=== PATIENT | female | born 1980 | race Caucasian/White ===

== ENCOUNTER → 2019-03-07 | Outpatient (CLI) | payer OTHER ==
--- NOTE | 2019-03-18 10:49 | P.CEMON ---
70 went monitor shows sinus rhythm, sinus tachycardia, PVCs occasionally in a bigeminal pattern no nonsustained ventricular tachycardia No atrial fibrillation
--- NOTE | 2019-03-18 15:02 | EM ---
Patient Name: Johana Ramirez Date of : 80 Patient Status: Clinical Attending Provider: Jeremias Santiago Date: 03/18/19 10:46 Initialization Date: 03/18/19 10:46 70 went monitor shows sinus rhythm, sinus tachycardia, PVCs occasionally in a bigeminal pattern no nonsustained ventricular tachycardia No atrial fibrillation MTDD
== END | disposition home or self-care (01) ==
LOC: RADECHMAIN 12:27
PROVIDERS: ATTEND Internal Medicine Cardiovascular Disease
DX: I48.91 Unspecified atrial fibrillation (principal); R00.0 Tachycardia, unspecified
CPT/HCPCS: 93270

== ENCOUNTER → 2019-05-13 | Outpatient (CLI) | payer OTHER ==
--- NOTE | 2019-05-13 09:22 | US ---
LOWER EXTREMITY VENOUS INSUFFICIENCY CLINICAL HISTORY: R60.0 Edema. Left leg swelling, patient on blood thinners SIDE PERFORMED: Bilateral 1) Color flow is present and patency is documented in the following vessels. No DVT or SVT is noted . EIV Common Femoral Vein Deep Femoral Vein Femoral Vein Popliteal Vein Proximal Calf Veins Greater Saph Vein Upper Small Saph Vein 2) There is venous reflux noted at the following venous levels: Bilateral EIV IMPRESSION: Venous reflux bilateral external iliac veins
== END | disposition home or self-care (01) ==
LOC: RADUSMAIN 08:29
PROVIDERS: ATTEND Internal Medicine Cardiovascular Disease
DX: I87.2 Venous insufficiency (chronic) (peripheral) (principal)
CPT/HCPCS: 93970

== ENCOUNTER 2020-02-06 22:22 | Emergency (ER) | payer OTHER ==
[2020-02-06 22:39] VITALS: RESP 18
--- NOTE | 2020-02-06 23:50 | XR ---
EXAMINATION TYPE: XR Hip LT and AP Pelvis DATE OF EXAM: 02/06/2020 COMPARISON: NONE HISTORY: Fall. Left hip pain TECHNIQUE: 3 views FINDINGS: The pelvic ring is intact. Proximal left femur and hip joint appear normal. There are clips from tubal ligation. Sacroiliac joints appear normal. IMPRESSION: Normal pelvis and left hip exam. No fracture.
[2020-02-07] MEDS ORDERED: HYDROmorphone 1 MG/ML 1 ML SYRINGE IM STA (00:06)
[2020-02-07] MEDS ORDERED: ACET/COD 300 MG/30 MG STARTER PACK 6 TAB BTL PO STA (00:07)
--- NOTE | 2020-02-07 00:08 | ED ---
Fall HPI - General Chief Complaint: Fall Stated Complaint: Fall, L Leg Pain Time Seen by Provider: 02/06/20 23:10 Source: patient, RN notes reviewed, old records reviewed Mode of arrival: wheelchair Limitations: no limitations - History of Present Illness Initial Comments: This is a 39-year-old female DF for mechanical fall fall on the left hip. Patient states she just lost balance pain is persistent, no other injuries noted patient does take blood thinners but did not hit her head, urinated with no blood. 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 Place Fall Occurred: home Loss of Consciousness: none Prolonged Down Time?: no Symptoms Prior to Fall: none Location: back, pelvis Severity: mild Severity scale (1-10): 3 Quality: dull Context: tripped/slipped Associated Symptoms: denies - Related Data Home Medications Medication Instructions Recorded Confirmed Atorvastatin [Lipitor] 10 mg PO DAILY 02/07/20 02/07/20 Baclofen [Lioresal] 10 mg PO QID PRN 02/07/20 02/07/20 Butalb/APAP/Caff 50-325-40Mg 1 tab PO DAILY PRN 02/07/20 02/07/20 [Fioricet 50-325-40] Cholecalciferol (Vitamin D3) 125 mcg PO DAILY 02/07/20 02/07/20 [Vitamin D3] Loratadine [Claritin] 10 mg PO HS 02/07/20 02/07/20 Metoprolol Tartrate [Lopressor] 12.5 mg PO BID 02/07/20 02/07/20 Nitroglycerin Sl Tabs [Nitrostat] 0.4 mg SUBLINGUAL Q5M PRN 02/07/20 02/07/20 Omeprazole 20 mg PO BID 02/07/20 02/07/20 Paliperidone [Invega] 3 mg PO DAILY@149902/07/20 02/07/20 Paliperidone [Invega] 9 mg PO DAILY@149902/07/20 02/07/20 Rivaroxaban [Xarelto] 20 mg PO DAILY 02/07/20 02/07/20 Allergies Allergy/AdvReac Type Severity Reaction Status Date / Time naproxen Allergy Unknown Verified 02/07/20 18:49 Review of Systems ROS Statement: Those systems with pertinent positive or pertinent negative responses have been documented in the HPI. ROS Other: All systems not noted in ROS Statement are negative. Past Medical History Past Medical History: Hypertension Additional Past Medical History / Comment(s): Hx Afib in 2006, No medication for HBP History of Any Multi-Drug Resistant Organisms: None Reported Past Surgical History: No Surgical Hx Reported Past Anesthesia/Blood Transfusion Reactions: No Reported Reaction Past Psychological History: ADD/ADHD, Anxiety, Bipolar, Depression Smoking Status: Current every day smoker Past Alcohol Use History: None Reported Past Drug Use History: Marijuana - Past Family History Mother Family Medical History: Diabetes Mellitus General Exam Limitations: no limitations General appearance: alert, in no apparent distress Head exam: Present: atraumatic, normocephalic, normal inspection Eye exam: Present: normal appearance, PERRL, EOMI. Absent: scleral icterus, conjunctival injection, periorbital swelling ENT exam: Present: normal exam, mucous membranes moist Neck exam: Present: normal inspection. Absent: tenderness, meningismus, lymphadenopathy Respiratory exam: Present: normal lung sounds bilaterally. Absent: respiratory distress, wheezes, rales, rhonchi, stridor Cardiovascular Exam: Present: regular rate, normal rhythm, normal heart sounds. Absent: systolic murmur, diastolic murmur, rubs, gallop, clicks GI/Abdominal exam: Present: soft, normal bowel sounds. Absent: distended, tenderness, guarding, rebound, rigid Extremities exam: Present: normal inspection, full ROM, normal capillary refill. Absent: tenderness, pedal edema, joint swelling, calf tenderness Back exam: Present: normal inspection Neurological exam: Present: alert, oriented X3, CN II-XII intact Psychiatric exam: Present: normal affect, normal mood Skin exam: Present: warm, dry, intact, normal color. Absent: rash Course Vital Signs 02/06/20 02/07/20 22:36 00:47 Temperature 98.2 F 97.2 F L Pulse Rate 95 88 Respiratory 18 18 Rate Blood Pressure 118/95 144/107 O2 Sat by Pulse 97 Oximetry - Reevaluation(s) Reevaluation #1: Medical records reviewed Patient is able to ambulate Medical Decision Making - Medical Decision Making 39 female ER for evaluation of fall. Patient has mild back injury no significant acute disease and can be discharged home - Radiology Data Radiology results: report reviewed (X-ray of hip and pelvis negative for traumatic injury), image reviewed Disposition Clinical Impression: Fall, Left hip pain, Back contusion Disposition: HOME SELF-CARE Condition: Good Instructions (If sedation given, give patient instructions): Back Pain (ED), Hip Contusion (ED) Is patient prescribed a controlled substance at d/c from ED?: No Referrals: [facility] [Primary Care Provider] - 1-2 days
[2020-02-07 00:50] VITALS: BP 144/107; PULSE 88; TEMP 97.2
== END 2020-02-07 01:01 | disposition home or self-care (01) ==
LOC: EC 22:22
DX: M25.552 Pain in left hip (principal); S30.0XXA Contusion of lower back and pelvis, initial encounter; I10 Essential (primary) hypertension; F17.200 Nicotine dependence, unspecified, uncomplicated; Z79.899 Other long term (current) drug therapy; Z88.6 Allergy status to analgesic agent; W01.0XXA Fall on same level from slipping, tripping and stumbling without subsequent striking against object, initial encounter
CPT/HCPCS: 99284 ×2; 96372 ×2; 99285; 36415; 93005; 80053; 83735; 84484; 85025; 85610; 85730; 73502; 71046; J1170

== ENCOUNTER 2020-02-07 18:41 | Emergency (ER) | payer OTHER ==
[2020-02-07 18:49] VITALS: RESP 18; TEMP 98.7
--- NOTE | 2020-02-07 19:32 | ED ---
Chest Pain HPI - General Chief Complaint: Chest Pain Stated Complaint: chest pain Source: patient Mode of arrival: ambulatory Limitations: no limitations - History of Present Illness Initial Comments: The patient is a 39-year-old female with past history of A. fib, [place] who presents to the emergency department with reported chest pain. Patient states that it started approximately 1 hour 45 minutes prior to her arrival. She describes it as a sharp shooting pain in left side of her chest which radiates to her left arm. States that it only lasted for 45 minutes before it went away. She admits to mild associated shortness of breath. Denies ripping or tearing sensation to her back. No unilateral numbness, tingling or weakness. She is on xarelto for her A. fib. Denies history of DVT or PE. No lower extremity swelling. There are no other alleviating, Perceptin or modifying factors - Related Data Home Medications Medication Instructions Recorded Confirmed Atorvastatin [Lipitor] 10 mg PO DAILY 02/07/20 02/07/20 Baclofen [Lioresal] 10 mg PO QID PRN 02/07/20 02/07/20 Butalb/APAP/Caff 50-325-40Mg 1 tab PO DAILY PRN 02/07/20 02/07/20 [Fioricet 50-325-40] Cholecalciferol (Vitamin D3) 125 mcg PO DAILY 02/07/20 02/07/20 [Vitamin D3] Loratadine [Claritin] 10 mg PO HS 02/07/20 02/07/20 Metoprolol Tartrate [Lopressor] 12.5 mg PO BID 02/07/20 02/07/20 Nitroglycerin Sl Tabs [Nitrostat] 0.4 mg SUBLINGUAL Q5M PRN 02/07/20 02/07/20 Omeprazole 20 mg PO BID 02/07/20 02/07/20 Paliperidone [Invega] 3 mg PO DAILY@1500 02/07/20 02/07/20 Paliperidone [Invega] 9 mg PO DAILY@149902/07/20 02/07/20 Rivaroxaban [Xarelto] 20 mg PO DAILY 02/07/20 02/07/20 Allergies Allergy/AdvReac Type Severity Reaction Status Date / Time naproxen Allergy Unknown Verified 02/07/20 18:49 Review of Systems ROS Statement: Those systems with pertinent positive or pertinent negative responses have been documented in the HPI. ROS Other: All systems not noted in ROS Statement are negative. EKG Findings - EKG Comments: EKG Findings:: EKG demonstrates normal sinus rhythm with a ventricular rate of 78. [place] interval 154. QRS 80. QTC of 426. No acute ST segment patient's depressions concerning for ischemic changes Past Medical History Past Medical History: Hypertension Additional Past Medical History / Comment(s): Hx Afib in 2005, No medication for HBP History of Any Multi-Drug Resistant Organisms: None Reported Past Surgical History: No Surgical Hx Reported Past Anesthesia/Blood Transfusion Reactions: No Reported Reaction Past Psychological History: ADD/ADHD, Anxiety, Bipolar, Depression Smoking Status: Current every day smoker Past Alcohol Use History: None Reported Past Drug Use History: Marijuana - Past Family History Mother Family Medical History: Diabetes Mellitus General Exam Limitations: no limitations Course Vital Signs 02/07/20 02/07/20 02/07/20 18:46 19:06 20:00 Temperature 98.7 F Pulse Rate 97 87 75 Respiratory 18 18 20 Rate Blood Pressure 152/94 137/84 142/87 O2 Sat by Pulse 96 98 98 Oximetry 02/07/20 20:30 Temperature Pulse Rate 78 Respiratory 18 Rate Blood Pressure 147/94 O2 Sat by Pulse 98 Oximetry Chest Pain MDM - MDM Upon arrival the patient is placed into room 6. A thorough history and physical exam was performed. Patient reports that her chest pain is completely resolved at this time. I recommended laboratory studies and chest x-ray for which the patient did agree. Laboratory studies are unremarkable. Troponin is negative. Chest x-ray demonstrates no acute process. The patient is reevaluated and continues to have no chest pain. Because of her previous cardiac history and did recommend hospitalization for which the patient did refuse. Patient states that she just wants to go home at this time. Did offer her pain medications however the patient continued to refuse. At this time the patient will be discharged home AGAINST MEDICAL ADVICE. Patient is aware of the risks of leaving and continues to request leave. She is of sound mind and capable of making her own decisions. 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 Return to the emergency room for any new or worsening symptoms Is patient prescribed a controlled substance at d/c from ED?: No Referrals: [facility] [Primary Care Provider] - 1-2 days Time of Disposition: 21:18
[2020-02-07 19:34] LABS: Basophils # (A) 0.1 k/uL (0-0.2); Basophils % (A) 1 %; Eosinophils # (A) 0.3 k/uL (0-0.7); Eosinophils % (A) 3 %; HCT 46.5 % (34.0-46.0); HGB 15.8 gm/dL (11.4-16.0); Lymphocytes % (A) 26 %; MCHC 33.8 g/dL (31.0-37.0); MCV 97.4 fL (80.0-100.0); Mean Platelet Volume 7.6; Monocytes # (A) 0.6 k/uL (0-1.0); Monocytes % (A) 6 %; Neutrophils # (A) 7.3 k/uL (1.3-7.7); Neutrophils % (A) 63 %; Platelet Count 288 k/uL (150-450); RBC 4.78 m/uL (3.80-5.40); RDW 14.5 % (11.5-15.5); WBC 11.6 k/uL (3.8-10.6)
--- NOTE | 2020-02-07 19:46 | XR ---
EXAMINATION TYPE: XR chest 2V DATE OF EXAM: 02/07/2020 COMPARISON: 12/03/2009 HISTORY: Chest pain TECHNIQUE: FINDINGS: Heart and mediastinum are normal. Lungs are clear. Diaphragm is normal. There are chest brendan ds. Bony thorax is intact. IMPRESSION: Normal chest. No change.
[2020-02-07 19:48] LABS: ALT 20 U/L (4-34); AST 25 U/L (14-36); African American GFR (CKD) >90 (>60 ml/min/1.73 sqM); Albumin 4.1 g/dL (3.5-5.0); Alkaline Phosphatase 90 U/L (38-126); Anion Gap 8 mmol/L; Blood Urea Nitrogen 12 mg/dL (7-17); Calcium 9.2 mg/dL (8.4-10.2); Carbon Dioxide 22 mmol/L (22-30); Chloride 108 mmol/L (98-107); Glucose 105 mg/dL (74-99); Magnesium 2.3 mg/dL (1.6-2.3); Non-African American GFR(CKD) >90 (>60 ml/min/1.73 sqM); Potassium 3.9 mmol/L (3.5-5.1); Sodium 138 mmol/L (137-145); Total Bilirubin 0.7 mg/dL (0.2-1.3); Total Protein 7.5 g/dL (6.3-8.2)
[2020-02-07 19:51] LABS: INR 1.2 (<1.2); Partial Thromboplastin Time 32.3 sec (22.0-30.0); Prothrombin Time 11.7 sec (9.0-12.0)
[2020-02-07] MEDS ORDERED: ASPIRIN 81 MG PO STA (19:52)
[2020-02-07 21:22] VITALS: BP 147/94; PULSE 78
== END 2020-02-07 21:29 | disposition left against medical advice (07) ==
LOC: EC 18:41
DX: R07.9 Chest pain, unspecified (principal); R06.02 Shortness of breath; Z53.29 Procedure and treatment not carried out because of patient's decision for other reasons; I10 Essential (primary) hypertension; I48.91 Unspecified atrial fibrillation; F17.200 Nicotine dependence, unspecified, uncomplicated; Z79.01 Long term (current) use of anticoagulants; Z79.899 Other long term (current) drug therapy; Z88.6 Allergy status to analgesic agent
CPT/HCPCS: 36415; 71046; 80053; 83735; 84484; 85025; 85610; 85730; 93005; 99285

== ENCOUNTER 2023-12-02 11:02 | Day surgery (SDC) | payer OTHER ==
[2023-11-30 12:09] VITALS: BMI 41.7
--- NOTE | 2023-12-01 09:13 | P.HPOR ---
History of Present Illness H&P Date: 12/01/23 Subjective: This is a 43 year old female that presents today for initial evaluation regarding a several year history of progressively worsening left hand paresthesias in the thumb, index, middle and ring fingers. The patient has tried 3 injections over the last several years into the carpal tunnel with temporary relief of her symptoms and has tried wrist bracing at night time. The patient denies any inciting event or neck pain. Physical Examination: LUE: AIN/PIN/Radial/Ulnar/Median motor intact. Radial/Ulnar/Median SILT. 2+/4 Radial/Ulnar pulses palpated. 5/5 APB, 5/5 FDI. Negative Finkelsteins, negative CMC grind, positive Durkan's compression. Impression: 1.) Left carpal tunnel syndrome Plan: Diagnosis and treatment options were discussed with the patient. The patient has failed conservative treatment and would like to pursue a left endoscopic vs open carpal tunnel release. Risks and benefits of surgery including bleeding, infection, damage to surrounding tissue, need for further surgery, possible need to convert to open procedure, residual numbness were discussed and the patient wished to go forward with surgery. She has an adhesive allergy and no steri strips will be used for surgery. CC: Patrica Delatorre NP -Sharad Griffin DO Orthopedic Hand/Upper Extremity Surgeon Past Medical History Past Medical History: Atrial Fibrillation, Hyperlipidemia, Hypertension Additional Past Medical History / Comment(s): Hx Afib in 2005, No medication for HBP History of Any Multi-Drug Resistant Organisms: None Reported Past Surgical History: Tubal Ligation Additional Past Surgical History / Comment(s): COLONOSCOPY Past Anesthesia/Blood Transfusion Reactions: No Reported Reaction Smoking Status: Current every day smoker - Past Family History Mother Family Medical History: Diabetes Mellitus Medications and Allergies Home Medications Medication Instructions Recorded Confirmed Type Atorvastatin [Lipitor] 10 mg PO DAILY 02/07/20 11/30/23 History Cholecalciferol (Vitamin D3) 125 mcg PO DAILY 02/07/20 11/30/23 History [Vitamin D3] Rivaroxaban [Xarelto] 20 mg PO DAILY 02/07/20 11/30/23 History Cariprazine HCl [Vraylar] 6 mg PO DAILY 11/30/23 11/30/23 History Losartan [Cozaar] 50 mg PO DAILY 11/30/23 11/30/23 History Propranolol [Inderal] 10 mg PO DAILY 11/30/23 11/30/23 History buPROPion HCL [Wellbutrin SR] 150 mg PO DAILY 11/30/23 11/30/23 History Allergies Allergy/AdvReac Type Severity Reaction Status Date / Time adhesive tape AdvReac Rash/Hives Verified 11/30/23 11:38 ibuprofen AdvReac BLOOD Verified 11/30/23 11:38 CLOTS IN STOOL naproxen AdvReac BLOOD Verified 11/30/23 11:38 CLOTS IN STOOL Physical Examination Osteopathic Statement: *. No significant issues noted on an osteopathic structural exam other than those noted in the History and Physical/Consult.
[~2023-12-02 11:02] MED LIST: DEXAMETHASONE SOD PHOSPHATE 4 MG/ML 1 ML VIAL IV ONE; HYDROmorphone 0.5 MG/0.5 ML SYRINGE IVP PRN; Pre Op ABX Message 1 EACH MISC MISCELLANE ONE
[2023-12-02 11:44] VITALS: RESP 16; TEMP 97.8
[2023-12-02] MEDS: LACTATED RINGERS 1,000 ML IV SCH (11:45)
[2023-12-02] MEDS: LIDOCAINE 1% (10MG/ML) FOR IV START INTRADERMA PRN (11:45)
[2023-12-02] MEDS: DEXAMETHASONE SOD PHOSPHATE 4 MG/ML 1 ML VIAL IVP ONE (12:00)
[2023-12-02] MEDS: ONDANSETRON 4 MG/2 ML VIAL ONE (12:00)
[2023-12-02] MEDS ORDERED: LIDOCAINE 1% INJ 10MG/ML (20 ML MDV) ONE (12:59)
[2023-12-02] MEDS ORDERED: PROPOFOL 10 MG/ML 20 ML VIAL IV ONE (12:59)
[2023-12-02] MEDS ORDERED: MIDAZOLAM 2 MG/2 ML VIAL ONE (12:59)
[2023-12-02] MEDS ORDERED: fentaNYL (PF) 50 MCG/ML 2 ML AMP ONE (12:59)
[2023-12-02] MEDS: BUPIVACAINE (PF) 0.5% 30 ML VIAL SQ ONE (13:15)
[2023-12-02] MEDS: LIDOCAINE 2% (PF) 20 MG/ML 10 ML AMP SQ ONE (13:15)
--- NOTE | 2023-12-02 13:23 | P.OP ---
Date of Procedure: 12/02/23 Preoperative Diagnosis: Left carpal tunnel syndrome Postoperative Diagnosis: Left carpal tunnel syndrome Procedure(s) Performed: Left endoscopic carpal tunnel release Anesthesia: MAC Surgeon: Sharad Griffin Estimated Blood Loss (ml): 0 Pathology: none sent Condition: stable Disposition: PACU Description of Procedure: This is a 43 year old female who presents today for a left endoscopic carpal tunnel release after having failed conservative treatment in the past. Risks and benefits of surgery were discussed with the patient including bleeding, damage to surrounding tissue, infection, need to convert to open procedure, need for further surgery as well as risks of anesthesia including pulmonary embolism and even and the patient wished to proceed with surgical intervention. The patients was seen in the pre-operative area by myself. Consent and H&P were completed and updated. The correct extremity was marked in the pre-operative area by myself and all other questions were answered. Operative Narrative: The patient was brought to the operating room by the department of anesthesia. They remained on the portable stretcher and a rolling hand table was brought to the side of the operative extremity. Pre-operative time out was performed indicating the correct patient, procedure and laterality. All in the room agreed. The patient was then drifted off to sleep by the department of anesthesia. MAC anesthesia was utilized and a 50:50 mixture of 1% Lidocaine and 0.5% bupivacaine was injected into the subcutaneous tissues of the palmar skin, 8ccs total. A nonsterile tourniquet was then applied to the operative extremity and the left upper extremity was then prepped and draped in normal sterile fashion. The operative extremity was the exsanguinated with an esmarch bandage and the tourniquet was inflated to 250mmHg. 15 blade scalpel was utilized to make a transverse incision on the palmar skin just ulnar to the palmaris longus tendon at the level of the distal wrist crease. Ragnell retractor was then placed radially and blunt dissection was performed to reveal the distal forearm fascia. This was lifted with fine Cain pick ups and Littler tenotomy scissors were then used to open the forearm fascia transversely and a double skin hook was then placed. Hamate finder was placed into the carpal tunnel and then sequential sized dilators were inserted followed by the synovial elevator to separate the flexor tenosynovium from the undersurface of the transverse carpal ligament and a washboard texture was felt. The Micro[employer]ire endoscopic carpal tunnel release system gun was the then inserted into the carpal tunnel hugging the deep portion of the transverse carpal ligament in line with the base of the ring finger. Transverse fibers of the ligament were directly visualized. Pressure was applied on the palm to reveal the distal extent of the transverse carpal ligament. The blade was then deployed and the distal half of the transverse carpal ligament was released. The scope was then brought distal again and remaining transverse fibers were incised with the blade. The proximal half of the transverse carpal ligament was then divided and again the scope was advanced distal and remaining transverse fibers were incised with the blade. The radial and ulnar leaflets were directly visualized and mobile consistent with complete release. Tenotomy scissors were then utilized to release the remaining distal forearm fascia under direct visualization taking care to preserve the palmar cutaneous branch of the median nerve. Skin closure was performed with interrupted 4-0 nylon suture. Sterile dressing was applied consisting 4x4s, Webril, and an ant bandage. Tourniquet was let down and the hand immediately was well perfused. The patient was then woken by the department of anesthesia and transferred to PACU in stable condition. Sharad Griffin D.O. Orthopedic Hand/Upper Extremity Surgeon
[2023-12-02 13:56] VITALS: BP 115/81; PULSE 52
== END 2023-12-02 14:04 | disposition home or self-care (01) ==
LOC: OR 11:02
PROVIDERS: ATTEND Orthopaedic Surgery Hand Surgery
DX: G56.02 Carpal tunnel syndrome, left upper limb (principal); I48.91 Unspecified atrial fibrillation; I10 Essential (primary) hypertension; E78.5 Hyperlipidemia, unspecified; F20.9 Schizophrenia, unspecified; F17.200 Nicotine dependence, unspecified, uncomplicated; Z79.01 Long term (current) use of anticoagulants; Z88.3 Allergy status to other anti-infective agents; Z88.6 Allergy status to analgesic agent; Z98.51 Tubal ligation status; Z79.899 Other long term (current) drug therapy; Z88.8 Allergy status to other drugs, medicaments and biological substances; Z87.442 Personal history of urinary calculi
CPT/HCPCS: 29848; J1100; J2001; J2405; J0665; 81025

== ENCOUNTER 2024-05-17 13:00 | Day surgery (SDC) | payer OTHER ==
[2024-05-17] MEDS: SODIUM CHLORIDE 0.9% 1,000 ML IV SCH (13:53)
[2024-05-17 14:02] VITALS: BP 158/111; PULSE 60; RESP 16; TEMP 97.6
[2024-05-17] MEDS: LIDOCAINE 1% INJ 10MG/ML (20 ML MDV) SQ ONE (14:32)
--- NOTE | 2024-05-17 15:03 | P.EPPROC ---
- EP Procedure Note Electrophysiology Procedure Note: Loop monitor implant Primary physicians: Route Jumper: Dr. Cox Indication: Short bursts of PAF, frequent premature beats, wide QRS, likely PACs with aberrancy rather than PVCs Patient was brought to the EP lab in a fasting state. Written informed consent was obtained prior to the procedure. The left pectoral area was prepped and draped per protocol. Intravenous antibiotic was administered preoperatively. A subcutaneous Loop monitor was implanted successfully and the wound was closed per protocol. The device was programmed to detect significant cornelia- arrhythmic and tachy-arrhythmic events, per protocol. Device and programming details: Atrial fibrillation detection and management
== END 2024-05-17 15:08 | disposition home or self-care (01) ==
LOC: CATHEP 13:00
PROVIDERS: ATTEND Internal Medicine Clinical Cardiac Electrophysiology
DX: R55 Syncope and collapse
CPT/HCPCS: 33285; 81025

== ENCOUNTER 2024-08-13 14:22 | Emergency (ER) | payer OTHER ==
[2024-08-13 14:52] LABS: Basophils # (A) 0.1 k/uL (0-0.2); Basophils % (A) 1 %; Eosinophils # (A) 0.4 k/uL (0-0.7); Eosinophils % (A) 4 %; HCT 47.1 % (34.0-46.0); HGB 15.2 gm/dL (11.4-16.0); Lymphocytes # (A) 2.8 k/uL (1.0-4.8); Lymphocytes % (A) 30 %; MCH 31.5 pg (25.0-35.0); MCHC 32.4 g/dL (31.0-37.0); MCV 97.4 fL (80.0-100.0); Mean Platelet Volume 7.4; Monocytes # (A) 0.5 k/uL (0-1.0); Monocytes % (A) 5 %; Neutrophils # (A) 5.6 k/uL (1.3-7.7); Neutrophils % (A) 59 %; Platelet Count 268 k/uL (150-450); RBC 4.84 m/uL (3.80-5.40); RDW 14.9 % (11.5-15.5); WBC 9.5 k/uL (3.8-10.6)
[2024-08-13 15:01] LABS: INR 1.2 (<1.2); Partial Thromboplastin Time 29.7 sec (22.0-30.0); Prothrombin Time 13.3 sec (10.0-12.5)
[2024-08-13] MEDS: HYDROmorphone 1 MG/ML 1 ML SYRINGE IVP STA (15:03)
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
[2024-08-13 15:14] LABS: ALT 19 U/L (4-34); AST 20 U/L (14-36); African American GFR (CKD) >90 (>60 ml/min/1.73 sqM); Albumin 3.8 g/dL (3.5-5.0); Alkaline Phosphatase 66 U/L (38-126); Anion Gap 5 mmol/L; Blood Urea Nitrogen 16 mg/dL (7-17); Calcium 9.1 mg/dL (8.4-10.2); Carbon Dioxide 26 mmol/L (22-30); Chloride 107 mmol/L (98-107); Glucose 103 mg/dL (74-99); Magnesium 2.1 mg/dL (1.6-2.3); Non-African American GFR(CKD) 89 (>60 ml/min/1.73 sqM); Potassium 3.8 mmol/L (3.5-5.1); Sodium 138 mmol/L (137-145); Total Bilirubin 1.7 mg/dL (0.2-1.3); Total Protein 6.4 g/dL (6.3-8.2)
--- NOTE | 2024-08-13 15:43 | XR ---
EXAMINATION TYPE: XR chest 2V DATE OF EXAM: 08/13/2024 3:37 PM COMPARISON: Prior chest radiograph 02/07/2020. CLINICAL INDICATION: Female, 44 years old with history of Chest Pain; [facility] TECHNIQUE: XR chest 2V Frontal and lateral views of the chest. FINDINGS: Lungs/Pleura: There is no evidence of pleural effusion, focal consolidation, or pneumothorax. Pulmonary vascularity: Unremarkable. Heart/mediastinum: Cardiomediastinal silhouette is unremarkable. Musculoskeletal: No acute osseous pathology. Other findings: Loop recorder device overlying the cardiac silhouette/left chest wall. IMPRESSION: No acute cardiopulmonary disease/process. [facility], , 08/13/2024 3:40 PM
[2024-08-13] MEDS: ONDANSETRON 4 MG/2 ML VIAL IVP STA (15:59)
[2024-08-13] MEDS: KETOROLAC 15 MG/ML 1 ML VIAL IVP STA (16:25)
[2024-08-13 16:34] VITALS: BP 148/107; PULSE 63; RESP 19; TEMP 98.7
== END 2024-08-13 16:35 | disposition home or self-care (01) ==
LOC: EC 14:22
DX: R07.89 Other chest pain (principal); Z91.048 Other nonmedicinal substance allergy status; Z88.6 Allergy status to analgesic agent; Z87.891 Personal history of nicotine dependence; V43.62XA Car passenger injured in collision with other type car in traffic accident, initial encounter; Y92.410 Unspecified street and highway as the place of occurrence of the external cause
CPT/HCPCS: 36415; 93005; 80053; 83735; 84484; 85025; 85610; 85730; 71046; 99285; 96374; 96375 ×2; J2405; J1171; J1885